=== PATIENT | male | born 1965 | race Caucasian/White ===

== ENCOUNTER 2024-11-04 14:10 | Outpatient (CLI) | payer BC, SELFPAY ==
[2024-11-04 15:14] LABS: Basophils Percent Auto 0.6 % (0.2-1.2); Eosinophils Absolute Auto 0.2 K/mm3 (0-0.3); Eosinophils Percent Auto 2.7 % (0-4.4); Hematocrit 51.8 % (42.0-52.0); Immature Granulocyte Absolute 0.01 K/mm3 (0.00-0.031); Immature Granulocyte Percent A 0.2 % (0-0.5); Lymphocytes Absolute Auto 2.21 K/mm3 (0.9-3.2); Lymphocytes Percent Auto 34.9 % (18.3-44.2); Mean Corpuscular HGB Conc 32.8 g/dl (32-36); Mean Corpuscular Hemoglobin 32.3 pg (26-34); Mean Corpuscular Volume 98.3 fl (80-100); Monocytes Absolute Auto 0.6 K/mm3 (0.1-0.6); Neutrophils Absolute Auto 3.3 K/mm3 (1.3-6.7); Neutrophils Percent Auto 52.6 % (45.5-73.1); Platelet Count Result 227 k/mm3 (150-375); Red Blood Count 5.27 M/mm3 (4.6-6.20); Red Cell Distribution Width 13.2 % (11.5-14.5); White Blood Count 6.3 K/mm3 (4.5-10.0)
[2024-11-04 15:26] LABS: Alanine Aminotransferase 32 U/L (6-50); Albumin Level 4.2 g/dL (3.5-5.1); Alkaline Phosphatase 76 U/L (38-126); Anion Gap 9 mmol/L (4-12); Aspartate Amino Transferase 31 U/L (17-59); Bilirubin,Total 0.3 mg/dL (0.2-1.3); Blood Urea Nitrogen 24 mg/dL (9-20); Calcium 8.9 mg/dL (8.4-10.2); Carbon Dioxide 25 mmol/L (22-30); Chloride 103 mmol/L (98-107); Estimated Glomerular Filt Rate > 60; Glucose 119 mg/dL (65-110); Sodium 137 mmol/L (137-145); Total Protein 7.5 g/dL (6.3-8.2)
--- OUTSIDE RECORDS SUMMARY | 2024-11-04 15:32 | XMS_ITS | Encounter Summary ---
Author Organization [facility] Address [address] [place] [address] Phone Care Team Providers Care Rigger Chief Name Role Phone Provider, None Primary Care Provider UnavailYordan Gillespie Primary Care Provider [phone] Nika Glover MD Primary Care Provider + [phone] Cole Ribera MD Unavailable Sunny Francisco MD Primary Care Provider [phone] Reason for Visit * Reason Comments Medication Refill Encounter Details Date Type Department Care Team (Late st Contact Info) Description 04/25/2022 Refill [facility] [place] [address] [place] [address] Yordan Neely, [facility] [address] [place] [address] Medication Refill Social History Tobacco Use Types Packs/Day Years Used Date Smoking Tobacco: Never Smokeless Tobacco: Current Chew Alcohol Use Standard Drinks/Week Comments Yes 0 (1 standard drink = 0.6 oz pur e alcohol) occasional beer Sex and Gender Information Value Date Recorded Sex Assigned at Not on file Legal Sex Male 8:48 PM CDT Gender Identity Not on file Sexual Orientation Not on file documented as of this encounter Miscellaneous Notes * Telephone Encounter - Erica Cunningham, RN - 04/28/2022 8:13 AM CST Appointment scheduled on 05/10/22. SERVICE CONSULTANT * Telephone Encounter - Carrie Pham RN - 04/27/2022 10:50 AM FARM SERVICE CONSULTANT Attempted to phone patient to relay provider message and schedule appointment. No answer. Voicemailleft to call the office. SERVICE CONSULTANT * Telephone Encounter - Buffy Ji RN - 04/26/2022 8:58 AM CST Attempted to call pt, no answer, LVM for pt to call back. SERVICE CONSULTANT * Telephone Encounter - Yordan Neely PAC - 04/26/2022 7:34 AM CST Rx request approved. Patient needs to schedule his new patient appt with me in near future. Please make him aware. SERVICE CONSULTANT * Telephone Encounter - Rebecca Kim RN - 04/25/2022 11:39 AM CST Medication failed the protocol, provider to review and approve the medication order if appropriate. Requested Prescriptions Pending Prescriptions Disp Refills lisinopril (PRINIVIL, ZESTRIL) 10 MG Tablet [Pharmacy Med Name: LISINOPRIL 10MG TABLETS] 30 Tablet 1 Sig: Take 1 Tablet by mouth daily. USMAN Inhibitors Protocol Failed - 04/25/2022 11:36 AM Failed - Serum potassium on record in past 12 months POTASSIUM Date Value Ref Range Status 05/17/2020 4.1 3.5 - 5.1 mmol/L Final Failed - Visit with relevant provider in past 12 months or upcoming 90 days Recent Visits No visits were found meeting these conditions. Showing recent visits within past 365 days and meeting all other requirements Future Appointments No visits were found meeting these conditions. Showing future appointments within next 90 days and meeting all other requirements Failed - GFR on record in past 12 months GFR, EST. NONAFRICAN Date Value Ref Range Status 05/17/2020 >60 >=60 Final Passed - Blood pressure on record in past 12 months Clinician-entered: BP Readings from Last 3 Encounters: 02/27/22 142/78 01/04/22 142/84 01/13/21 (!) 146/92 Patient-entered: No data recorded SERVICE CONSULTANT documented in this encounter Plan of Treatment Upcoming Encounters Date Type Department Care Team (Late st Contact Info) Description 04/16/2025 3:00 PM FARM SERVICE CONSULTANT Office Visit [facility] - [facility]ology & [facility] Medicine [facility] [address] [place] [phone] Cole Ribera MD [address] [place] [address] documented as of this encounter Visit Diagnoses Diagnosis Primary hypertension Unspecified essential hypertension documented in this encounter Additional Health Concerns Assessment Noted Time PHQ-9 Depression Total Score: 0 02/13/20 17 1:45 PM CDT documented as of this encounter Care Teams Rigger Chief Relationship Specialty Start Date End Date Provider, None [place] PCP - General 01/04/22 05/09/22 Yordan Neely, PAC [address] [place] [phone] PCP - General Physician Component Design Engineer 05/10/22 09/10/23 Nika Glover MD [address] [place] [address] PCP - General Family Medicine 10/23/23 09/28/24 Sunny Francisco MD [address] [address] PCP - General Family Medicine 10/01/24 Cole Ribera MD [address] [place] [address] Consulting Physician Pulmonary Disease 04/15/24 documented as of this encounter
--- OUTSIDE RECORDS SUMMARY | 2024-11-04 15:32 | XMS_ITS | Clinical Summary ---
Author Organization [facility] Address [address] [place] [address] Phone Care Team Providers Care Group President Name Role Phone Cole Ribera MD Unavailable Sunny Francisco MD Primary Care Provider [phone] Allergies No known active allergies Medications CarBAMazepine (TEGRETOL-XR PO) 400 AM, 600 PM Active Testosterone Cypionate Powder 0 4 Active lisinopril (PRINIVIL, ZESTRIL) 10 MG TabletIndications :Primary hypertension Take 1 Tablet by mouth daily. 90 Tablet 3 5 Active omeprazole (PriLOSEC) 40 MG CAPSULE DELAYED RELEASEIndication s:Gastroesophagea l reflux disease without esophagitis Take 1 Capsule by mouth daily. 90 Capsule 3 5 Active Active Problems Problem Noted Date Diagnosed Date [place] (obstructive sleep apnea) 04/11/2024 Non morbid obesity 04/11/2024 Onychomycosis 10/23/2023 Gastroesophageal reflux disease without esophagi tis 09/13/2022 Primary hypertension 02/27/2022 Seizure disorder Resolved Problems Problem Noted Date Diagnosed Date Resolved Date Acute non-recurrent maxillary sinusitis 08/29/2018 03/29/2020 Wound dehiscence 02/12/2017 03/29/2020 Cellulitis 02/12/2017 03/29/2020 Encounter for immunization 02/12/2017 1 05/29/2019 Anxiety 03/29/2020 Encounters Date Type Department Care Team Description 10/13/2024 3:00 PM CDT Office Visit [facility] - Pulmonology & Sleep Medicine [facility] [address] [place] [phone] Cole Ribera MD [place] (obstructive sleep apnea) (Primary Dx); Primary hypertension; Non morbid obesity Discharge Disposition: Discharged to home or Selfcare 10/13/2024 Travel 10/02/2024 Telephone [facility] [address] [place] [address] Sunny Francisco MD 10/01/2024 2:15 PM CDT Office Visit [facility] [address] [place] [address] Sunny Francisco MD Physical exam, annual (Adult) (Primary Dx); Primary hypertension; Gastroesophageal reflux disease without esophagitis; [place] on CPAP; Screening for prostate cancer; Encounter for immunization Discharge Disposition: Discharged to home or Selfcare 10/01/2024 Travel 09/29/[address] [address] Nika Glover MD Medication Refill 09/11/2024 Telephone [facility] [address] [place] [address] Sunny Francisco MD from Last 3 Months Immunizations Immunization Administration Dates Next Due Influenza Vaccine, Quadrivalent, PF 03/29/2020 MMR Vaccine 09/22/2013 TDAP Vaccine 10/01/2024 Tetanus Toxoid, Unspecified Formulation 08/27/19 14 Varicella Vaccine Live 09/22/2013 Family History Medical History Relation Name Comments Cancer Father Congestive Heart Failure Father Heart Attack Maternal Grandfather Heart Attack Mother Cancer Paternal Grandfather prostat e Diabetes Paternal Grandfather Relation Name Status Comments Father Maternal Grandfather Mother Paternal Grandfather Social History Tobacco Use Types Packs/Day Years Used Date Smoking Tobacco: Never Smokeless Tobacco: Current Chew Tobacco Cessation:Ready to Q uit: No; Counseling Given: Yes Alcohol Use Standard Drinks/Week Comments Yes 0 (1 standard drink = 0.6 oz pur e alcohol) occasional beer PHQ-2 Answer Date Recorded Total Score - Questions 1-9 0 07/27 Sex and Gender Information Value Date Recorded Sex Assigned at Not on file Legal Sex Male 8:48 PM CDT Gender Identity Not on file Sexual Orientation Not on file Last Filed Vital Signs Vital Sign Reading Time Taken Comments Blood Pressure 150/90 10/13/2024 3:03 PM CDT Pulse 72 10/13/2024 3:03 PM CDT Temperature 35.9 C (96.6 F) 10/13/2024 3:03 PM CDT Respiratory Rate 14 10/13/2024 3:03 PM CDT Oxygen Saturation 96% 10/13/2024 3:03 PM CDT Inhaled Oxygen Concentration - - Weight 129.7 kg (286 lb) 10/13/2024 3:03 PM CDT Height 185.4 cm (6' 1) 10/13/2024 3:03 PM CDT Body Mass Index 37.73 10/13/2024 3:03 PM CDT Plan of Treatment Upcoming Encounters Date Type Department Care Team (Late st Contact Info) Description 04/16/2025 3:00 PM DUAL RATE SUPERVISOR Office Visit [facility] - Pulmonology & Sleep Medicine [facility] [address] [place] [address] Cole Ribera MD [address] [place] [address] Health Maintenance Due Date Last Done Comments Hepatitis C Virus (HCV) Screening 1965 Hepatitis B Immunization (1 of 3 - 19+ 3-dose series) 1984 Colonoscopy 2010 Immunochemical Fecal Occult Blood 2010 Pneumococcal Immunization (5 0+ years) (1 of 1 - PCV) 2015 Zoster Immunization (1 of 2) 2015 SARS-COV-2 Immunization (1 - 2023- season) 2024 Influenza Immunization (Seas on Ended) 2025 03/29/2020 Cologuard 09/01/2026 09/02/2023 Colorectal Cancer Screening 09/01/2026 Td Immunization Every 10 Yea rs (Adults With 1 Tdap) 10/01/2034 10/01/2024 Respiratory Syncytial Virus (RSV) Immunization (Adult) (1 - 1-dose 75+ series) 2040 DTaP/Tdap/Td Immunization Discontinued 10/01/2024 PSA Discussion Completed 10/01/2024, 05/17/2020 TdaP Immunization Discontinued 10/01/2024 Human Papillomavirus (HPV) Immunization Aged Out No longer eligible based on patient's age to complete this topic Meningococcal Immunization (ACWY) Aged Out No longer eligible based on patient's age to complete this topic Rotavirus Immunization Aged Out No lo nger eligible based on patient's age to complete this topic Procedures Procedure Name Priority Date/Time Associated Diagnosis Comments CBC WITH AUTO DIFFERENTIAL Today 10/01/2024 3:09 PM CDT Primary hypertension Gastroesophageal reflux disease without esophagitis PSA SCREEN Today 10/01/2024 3:09 PM CDT Screening for prostate cancer CMP (COMPREHENSIVE METABOLIC PANEL) Today 10/01/2024 3:09 PM CDT Primary hypertension Gastroesophageal reflux disease without esophagitis LIPID PANEL Today 10/01/2024 3:09 PM CDT Primary hypertension Gastroesophageal reflux disease without esophagitis COMPLETE BLOOD COUNT (CBC) WITH DIFF Today 10/01/2024 3:09 PM CDT Primary hypertension Gastroesophageal reflux disease without esophagitis COLOGUARD Routine 09/02/2023 10:45 AM CDT Screening for rectal cancer Colon cancer screening from Last 3 Months or Most Recently Relevant to Health Maintenance Results * (ABNORMAL) CBC WITH AUTO DIFFERENTIAL (10/01/2024 3:09 PM CDT) WBC 8.90 4.00 - 12.00 10(3)/mcL 10/01/2024 3:40 PM CDT [facility] RBC 5.31 4.40 - 5.80 10(6)/mcL 10/01/2024 3:40 PM CDT [facility] HEMOGLOBIN (HGB) 17.3(H) 13.0 - 16.5 g/dL 10/01/2024 3:40 PM CDT [facility] HEMATOCRIT (HCT) 52.4(H) 38.0 - 50.0 % 10/01/2024 3:40 PM CDT [facility] MCV 98.7(H) 82.0 - 96.0 fL 10/01/2024 3:40 PM CDT [facility] MCH 32.6(H) 26.0 - 32.0 pg 10/01/2024 3:40 PM CDT [facility] MCHC 33.0 31.0 - 36.0 g/dL 10/01/2024 3:40 PM CDT [facility] PLATELET COUNT 225 140 - 440 10(3)/mcL 10/01/2024 3:40 PM CDT [facility] RDW 13.7 11.8 - 15.5 % 10/01/2024 3:40 PM CDT [facility] MPV 9.7 8.0 - 12.6 fL 10/01/2024 3:40 PM CDT [facility] NEUTROPHILS 51.2 40.0 - 68.0 % 10/01/2024 3:40 PM CDT [facility] LYMPHOCYTES 30.4 19.0 - 49.0 % 10/01/2024 3:40 PM CDT [facility] MONOCYTES 15.6(H) 3.0 - 13.0 % 10/01/2024 3:40 PM CDT [facility] EOSINOPHILS 2.0 0.0 - 8.0 % 10/01/2024 3:40 PM CDT [facility] BASOPHILS 0.8 0.0 - 1.0 % 10/01/2024 3:40 PM CDT [facility] ABSOLUTE NEUTROPHILS 4.55 1.40 - 5.30 10(3)/mcL 10/01/2024 3:40 PM CDT [facility] ABSOLUTE LYMPHOCYTES 2.71 0.90 - 3.30 10(3)/mcL 10/01/2024 3:40 PM CDT [facility] ABSOLUTE MONOCYTES 1.39(H) 0.10 - 0.90 10(3)/mcL 10/01/2024 3:40 PM CDT [facility] ABSOLUTE EOSINOPHIL 0.18 0.00 - 0.50 10(3)/mcL 10/01/2024 3:40 PM CDT [facility] ABSOLUTE BASOPHILS 0.07 0.00 - 0.10 10(3)/mcL 10/01/2024 3:40 PM CDT [facility] NRBC PER 100 WBC 0 10/02/19 25 3:40 PM CDT [facility] Blood Venipuncture / Unknown 10/01/2024 3:09 PM CDT 10/01/2024 3:28 PM CDT Sunny Francisco MD HEMATOLOGY ORDERABLES Final R esult Performing Organization Address City/[facility]/ZIP Co de Phone Number [facility] [address] [place] [address] * PSA SCREEN (10/01/2024 3:09 PM CDT) PSA SCREEN, TOTAL 0.86 <4.00 ng/mL 10/01/2024 4:53 PM CDT [facility] Blood Venipuncture / Unknown 10/01/2024 3:09 PM CDT 10/01/2024 3:26 PM CDT Narrative [facility] - 10/01/2024 4:53 PM CDT The [employer] Total PSA assay is a Chemiluminescent Microparticle Immunoassay (CMIA) for the quantitative determination of total PSA (both free PSA and PSA complexed to [id number]) in human serum. Total PSA values obtained with different assay methods, including [place] PSA assays, cannot be used interchangeably. Sunny Francisco MD CHEMISTRY ORDERABLES Final Re sult Performing Organization Address City/[facility]/ZIP Co de Phone Number [facility] [address] [place] [address] * LIPID PANEL (10/01/2024 3:09 PM CDT) CHOLESTEROL 177 <200 mg/dL 10/01/2024 4:35 PM CDT [facility] TRIGLYCERIDES 140 <150 mg/dL 10/01/2024 4:35 PM CDT [facility] HDL CHOLESTEROL 52 >40 mg/dL 4:35 PM CDT [facility] LDL 97 <130 mg/dL 10/01/2024 4:35 PM CDT [facility] VLDL 28 10 - 50 mg/dL 10/01/2024 4:35 PM CDT [facility] CHOL/HDL RATIO 3.4 0.0 - 4.4 10/01/2024 4:35 PM CDT [facility] NON-HDL CHOLESTEROL 125 <130 mg/dL 10/01/2024 4:35 PM CDT [facility] IS THE PATIENT REQUIRED TO BE FASTING? No 10/01/2024 4:35 PM CDT [facility] Blood Venipuncture / Unknown 10/01/2024 3:09 PM CDT 10/01/2024 3:25 PM CDT Sunny Francisco MD CHEMISTRY ORDERABLES Final Re sult [facility] [address] [place] [address] * (ABNORMAL) CMP (COMPREHENSIVE METABOLIC PANEL) (10/01/2024 3:09 PM CDT) SODIUM 137 136 - 145 mmol/L 10/01/2024 4:35 PM CDT [facility] POTASSIUM 4.0 3.5 - 5.1 mmol/L 10/01/2024 4:35 PM CDT [facility] CHLORIDE 103 98 - 107 mmol/L 10/01/2024 4:35 PM CDT [facility] CO2, VENOUS 24 22 - 30 mmol/L 10/01/2024 4:35 PM CDT [facility] ANION GAP 14.0 <18.0 mmol/L 10/01/2024 4:35 PM CDT [facility] GLUCOSE 84 70 - 99 mg/dL 10/01/2024 4:35 PM CDT [facility] BUN 18 8 - 26 mg/dL 10/01/2024 4:35 PM CDT [facility] CREATININE, BLOOD 1.07 0.70 - 1.30 mg/dL 10/01/2024 4:35 PM CDT [facility] BUN/CREATININE RATIO 17 12 - 20 ratio 10/01/2024 4:35 PM CDT [facility] TOTAL PROTEIN 7.6 6.0 - 8.0 g/dL 10/01/2024 4:35 PM CDT [facility] ALBUMIN 4.1 3.5 - 5.0 g/dL 10/01/2024 4:35 PM CDT [facility] A/G RATIO 1.2 1.0 - 2.2 10/01/2024 4:35 PM CDT [facility] CALCIUM 9.0 8.7 - 10.5 mg/dL 10/01/2024 4:35 PM CDT [facility] T BILI 0.6 0.2 - 1.2 mg/dL 10/01/2024 4:35 PM CDT [facility] SGOT (AST) 64(H) <43 U/L 10/01/2024 4:35 PM CDT [facility] SGPT (ALT) 51 <56 U/L 10/01/2024 4:35 PM CDT [facility] ALKALINE PHOSPHATASE 69 40 - 150 U/L 10/01/2024 4:35 PM CDT [facility] IS THE PATIENT REQUIRED TO BE FASTING? No 10/01/2024 4:35 PM CDT [facility] GFR, ESTIMATED >60 >=60 10/01/2024 4:35 PM CDT [facility] Comment: Creatinine Clearance is the preferred criteria for selecting drug dose adjustments in renally impaired patients. The GFR is provided as additional pertinent clinical information. GFR is reported in mL/min/1.73 sq m. Calculation based on the Chronic Kidney Disease Epidemiology Collaboration (CKD- EPI) equation refit without adjustment for race. GFR, EST. >60 >=60 025 4:35 PM CDT [facility] GFR, EST. NONAFRICAN >60 >=60 10/01/2024 4:35 PM CDT [facility] Blood Venipuncture / Unknown 10/01/2024 3:09 PM CDT 10/01/2024 3:25 PM CDT Sunny Francisco MD CHEMISTRY ORDERABLES Final Re sult [facility] [address] [place] [address] * COLOGUARD (09/02/2023 10:45 AM CDT) Cologuard Negative Negative [facility] Comment: NEGATIVE TEST RESULT. A negative Cologuard result indicates a low likelihood that a colorectal cancer (CRC) or advanced adenoma (adenomatous polyps with more advanced pre-malignant features) is present. The chance that a person with a negative Cologuard test has a colorectal cancer is less than 1 in 1500 (negative predictive value >99.9%) or has an advanced adenoma is less than 5.3% (negative predictive value 94.7%). These data are based on a prospective cross-sectional study of 10,000 individuals at average risk for colorectal cancer who were screened with both Cologuard and colonoscopy. (Agueda Baptiste al, N Engl J Med 2014;370(14):9523-8927) The normal value (reference range) for this assay is negative. COLOGUARD RE-SCREENING RECOMMENDATION: Periodic colorectal cancer screening is an important part of preventive healthcare for asymptomatic individuals at average risk for colorectal cancer. Following a negative Cologuard result, the [place] [employer] Society and U.S. Multi-Society Task Force screening guidelines recommend a Cologuard re-screening interval of 3 years. References: [place] [employer] Guideline for Colorectal Cancer Screening: https://www.cancer.org/cancer/jgdcm-tmczau-bxcsnt/zwyplyvma-dnbpyrnoz-mvfseti/ acs-recommendations.html.; Finn ANGULO, Nick MARTEL, Gordon PUGH, Colorectal Cancer Screening: Recommendations for Physicians and Patients from the U.S. Multi-Society Task Force on Colorectal Cancer Screening , Am J Gastroenterology 2017; 112:2819-4556. TEST DESCRIPTION: Composite algorithmic analysis of stool DNA-biomarkers with hemoglobin immunoassay. Quantitative values of individual biomarkers are not reportable and are not associated with individual biomarker result reference ranges. Cologuard is intended for colorectal cancer screening of adults of either sex, 45 years or older, who are at average-risk for colorectal cancer (CRC). Cologuard has been approved for use by the U.S. FDA. The performance of Cologuard was established in a cross sectional study of average-risk adults aged 50-84. Cologuard performance in patients ages 45 to 49 years was estimated by sub-group analysis of near-age groups. Colonoscopies performed for a positive result may find as the most clinically significant lesion: colorectal cancer [4.0%], advanced adenoma (including sessile serrated polyps greater than or equal to 1cm diameter) [20%] or non- advanced adenoma [31%]; or no colorectal neoplasia [45%]. These estimates are derived from a prospective cross-sectional screening study of 10,000 individuals at average risk for colorectal cancer who were screened with both Cologuard and colonoscopy. (Agueda Blackburn et al, N Engl J Med 2014;370(14):0740-3549.) Cologuard may produce a false negative or false positive result (no colorectal cancer or precancerous polyp present at colonoscopy follow up). A negative Cologuard test result does not guarantee the absence of CRC or advanced adenoma (pre-cancer). The current Cologuard screening interval is every 3 years. ([place] [employer] and U.S. Multi-Society Task Force). Cologuard performance data in a 10,000 patient pivotal study using colonoscopy as the reference method can be accessed at the following location: www.ProPerforma/results. Additional description of the Cologuard test process, warnings and precautions can be found at www.cologuard.com. Stool 09/02/2023 10:4 5 AM CDT 09/04/2023 10:07 AM CDT us Yordan Camryn Neely PAC BODY FLUIDS & STOOLS ORDERAB LES Final Result [facility] [address] [place] [address], [place] [phone] [address] [place] [address] from Last 3 Months or Most Recently Relevant to Health Maintenance Insurance * Guarantor: Benedicto Barrios III Account Type Relation to Patient Date of Phone Billing Address Workers Comp Self 1965 [id number] Care Teams Group President Relationship Specialty Start Date End Date Sunny Francisco MD [address] [address] PCP - General Family Medicine 10/01/24 Cole Ribera MD [address] [place] [address] Consulting Physician Pulmonary Disease 04/15/24
[2024-11-08 15:23] LABS: Vitamin D 1,25 (OH)2 Total 30 pg/mL (18-72); Vitamin D2 1,25 (OH)2 <8 pg/mL; Vitamin D3 1,25 (OH)2 30 pg/mL
[2024-11-09 08:23] LABS: Carbamazepine Tegretol 12.3 mcg/mL (4.0-12.0)
== END 2024-11-04 14:11 | disposition home or self-care (01) ==
PROVIDERS: Visit Provider Psychiatry & Neurology Neurology
DX: G40.109 Localization-related (focal) (partial) symptomatic epilepsy and epileptic syndromes with simple partial seizures, not intractable, without status epilepticus (principal); E55.9 Vitamin D deficiency, unspecified
CPT/HCPCS: 36415; 80053; 80156; 82652; 85025